=== PATIENT | female | born 1955 | race Caucasian/White ===

== ENCOUNTER 2023-03-08 11:50 | Outpatient (CLI) | payer MEDICARE, SELFPAY ==
--- NOTE | ~2023-03-08 | XR_ITS ---
AP and lateral views of the right hip Clinical history: Pain Findings: No acute fracture or dislocation is seen. Osseous alignment is anatomic. Right hip joint is preserved. Soft tissues are unremarkable. Impression: No significant abnormality is seen. Reviewed, dictated and finalized at location M. Impression: No significant abnormality is seen.
[2023-03-08 19:21] LABS: Alanine Aminotransferase 26 U/L (6-35); Albumin Level 4.3 g/dL (3.5-5.1); Alkaline Phosphatase 112 U/L (38-126); Anion Gap 5 mmol/L (8-16); Aspartate Amino Transferase 45 U/L (14-36); Bilirubin,Total 0.6 mg/dL (0.2-1.3); Blood Urea Nitrogen 24 mg/dL (7-17); Carbon Dioxide 35 mmol/L (22-30); Chloride 99 mmol/L (98-107); Cholesterol 166 mg/dL (0-200); Estimated Glomerular Filt Rate > 60; Glucose 93 mg/dL (65-110); HDL Direct 36 mg/dL; Potassium 4.6 mmol/L (3.4-5.0); Sodium 139 mmol/L (137-145); Triglycerides 144 mg/dL (<150)
[2023-03-08 19:39] LABS: LDL Cholesterol Direct 78 mg/dL
[2023-03-08 19:45] LABS: Creatinine Urine 26.2 mg/dL
[2023-03-08 20:11] LABS: MALB Creatinine Ratio 809.2 mg/g (0-30)
[2023-03-08 20:37] LABS: Hemoglobin A1C 5.9 % (<5.7)
== END 2023-03-08 11:51 | disposition home or self-care (01) ==
PROVIDERS: PCP Nurse Practitioner Adult Health; Visit Provider Nurse Practitioner Adult Health
DX: E11.9 Type 2 diabetes mellitus without complications (principal); Z51.81 Encounter for therapeutic drug level monitoring; R42 Dizziness and giddiness; M25.551 Pain in right hip
CPT/HCPCS: 36415; 73502; 80048; 80061; 80076; 82043; 83036; 84443

== ENCOUNTER 2023-03-29 10:31 | Outpatient (CLI) | payer MEDICARE, SELFPAY ==
[2023-03-29 18:34] LABS: Appearance Urine Turbid (Clear); Bacteria Urine 4+ /hpf; Bilirubin Urine Negative (Negative); Blood Urine Trace (Negative); Color Urine Yellow (Yellow); Glucose Urine UA Negative (Negative); Ketones Urine Negative (Negative); Leukocyte Esterase Ur 3+ LEU/UL (NEGATIVE); Nitrate Urine Negative (Negative); Non Pathogenic Casts 0-2; Protein Urine 2+ mg/dL (Negative); RBC Urine 0-2 /hpf (0-2); Squamous Epithelial Cell Urine Few /hpf (Few); Urobilinogen Urine 0.2 mg/dL (<2.0); WBC Urine >100 /hpf (0-3)
[2023-03-29 18:37] LABS: Add Urine Microscopic? YES
== END 2023-03-29 10:32 | disposition home or self-care (01) ==
PROVIDERS: PCP Nurse Practitioner Adult Health; Visit Provider Nurse Practitioner Adult Health
DX: R39.9 Unspecified symptoms and signs involving the genitourinary system (principal)
CPT/HCPCS: 81001

== ENCOUNTER 2023-05-23 08:39 | Outpatient (CLI) | payer MEDICARE, SELFPAY ==
[2023-05-23 18:43] LABS: Appearance Urine Turbid (Clear); Bacteria Urine 4+ /hpf; Bilirubin Urine Negative (Negative); Blood Urine 2+ (Negative); Color Urine Yellow (Yellow); Glucose Urine UA Negative (Negative); Ketones Urine Negative (Negative); Leukocyte Esterase Ur 3+ LEU/UL (NEGATIVE); Need Manual Microscopic Reviewed; Nitrate Urine Negative (Negative); Protein Urine 3+ mg/dL (Negative); RBC Urine 21-50 /hpf (0-2); Specific Grav Ur 1.017 (1.001-1.035); Squamous Epithelial Cell Urine Moderate /hpf (Few); Urobilinogen Urine 0.2 mg/dL (<2.0); WBC Urine >100 /hpf (0-3)
[2023-05-23 18:45] LABS: Add Urine Microscopic? YES
== END 2023-05-23 08:40 | disposition home or self-care (01) ==
PROVIDERS: PCP Nurse Practitioner Adult Health; Visit Provider Nurse Practitioner Adult Health
DX: R39.9 Unspecified symptoms and signs involving the genitourinary system (principal)
CPT/HCPCS: 81001

== ENCOUNTER → 2023-06-12 10:36 | Outpatient (CLI) | payer MEDICARE, SELFPAY ==
--- NOTE | ~2023-06-12 | MM_ITS ---
EXAMINATION: MM screening jenna BI w long HISTORY: Screening TECHNIQUE: Craniocaudal and mediolateral oblique 3-D tomosynthesis images were obtained and synthetic 2-D images were generated. CAD analysis was submitted and interpreted. COMPARISON: No prior mammogram is available for comparison at this institution. BREAST PARENCHYMAL COMPOSITION: There are scattered areas of fibroglandular density. FINDINGS: There is no evidence of suspicious mass, calcification, or architectural distortion to sugg est malignancy in either breast. There has been no suspicious interval change. IMPRESSION: 1. No mammographic evidence of malignancy. 2. Recommend routine screening mammography in one year. BI-RADS Category 1: Negative Reviewed, dictated and finalized at location A. AL MANAGEMENT REPRESENTATIVE
== END ==
PROVIDERS: PCP Nurse Practitioner Adult Health; Visit Provider Nurse Practitioner Adult Health
DX: Z12.31 Encounter for screening mammogram for malignant neoplasm of breast (principal)
CPT/HCPCS: 77063; 77067

== ENCOUNTER 2023-07-04 09:48 | Outpatient (CLI) | payer MEDICARE, SELFPAY ==
[2023-07-04 20:42] LABS: Alanine Aminotransferase 18 U/L (6-35); Alkaline Phosphatase 125 U/L (38-126); Anion Gap 8 mmol/L (8-16); Aspartate Amino Transferase 27 U/L (14-36); Bilirubin,Total 0.6 mg/dL (0.2-1.3); Blood Urea Nitrogen 28 mg/dL (7-17); Calcium 9.2 mg/dL (8.4-10.2); Carbon Dioxide 31 mmol/L (22-30); Chloride 97 mmol/L (98-107); Cholesterol 183 mg/dL (0-200); Estimated Glomerular Filt Rate > 60; Glucose 209 mg/dL (65-110); HDL Direct 42 mg/dL; Potassium 4.3 mmol/L (3.4-5.0); Sodium 136 mmol/L (137-145); Triglycerides 178 mg/dL (<150)
[2023-07-04 20:58] LABS: LDL Cholesterol Direct 80 mg/dL
[2023-07-05 01:55] LABS: Hemoglobin A1C 8.7 % (<5.7)
== END 2023-07-04 09:49 | disposition home or self-care (01) ==
PROVIDERS: PCP Nurse Practitioner Adult Health; Visit Provider Nurse Practitioner Adult Health
DX: E11.9 Type 2 diabetes mellitus without complications (principal)
CPT/HCPCS: 36415; 80053; 80061; 83036

== ENCOUNTER 2023-08-30 11:03 | Outpatient (CLI) | payer MEDICARE, SELFPAY ==
[2023-08-30 18:32] LABS: Appearance Urine Clear (Clear); Bilirubin Urine Negative (Negative); Blood Urine Negative (Negative); Color Urine Yellow (Yellow); Glucose Urine UA Negative (Negative); Ketones Urine Negative (Negative); Leukocyte Esterase Ur Negative LEU/UL (NEGATIVE); Nitrate Urine Negative (Negative); Protein Urine Negative (Negative); Specific Grav Ur 1.011 (1.001-1.035); Urobilinogen Urine 0.2 mg/dL (<2.0); pH Urine 5.5 (5.0-9.0)
[2023-08-30 18:34] LABS: Add Urine Microscopic? NO
== END 2023-08-30 11:04 | disposition home or self-care (01) ==
PROVIDERS: PCP Nurse Practitioner Adult Health; Visit Provider Nurse Practitioner Adult Health
DX: R39.9 Unspecified symptoms and signs involving the genitourinary system (principal)
CPT/HCPCS: 81003

== ENCOUNTER 2023-09-26 14:32 | Outpatient (CLI) | payer MEDICARE, SELFPAY ==
[2023-09-26 20:04] LABS: Bacteria Urine 4+ /hpf; Need Manual Microscopic Reviewed; RBC Urine 0-2 /hpf (0-2); Squamous Epithelial Cell Urine Moderate /hpf (Few); WBC Urine 21-50 /hpf (0-3)
[2023-09-26 20:10] LABS: Appearance Urine Sl Cloudy (Clear); Color Urine Yellow (Yellow); pH Urine 5.5 (5.0-9.0)
[2023-09-26 20:11] LABS: Bilirubin Urine Negative (Negative); Blood Urine Negative (Negative); Glucose Urine UA Negative (Negative); Ketones Urine Trace mg/dL (Negative); Nitrate Urine Negative (Negative); Protein Urine Trace mg/dL (Negative); Specific Grav Ur 1.015 (1.001-1.035); Urobilinogen Urine 0.2 mg/dL (<2.0)
[2023-09-26 20:12] LABS: Add Urine Microscopic? YES; Leukocyte Esterase Ur 1+ LEU/UL (Negative)
== END 2023-09-26 14:33 | disposition home or self-care (01) ==
LOC: ANHBWCLAB 14:33
PROVIDERS: PCP Nurse Practitioner Adult Health; Visit Provider Nurse Practitioner Adult Health
DX: R39.9 Unspecified symptoms and signs involving the genitourinary system (principal)
CPT/HCPCS: 81001

== ENCOUNTER 2023-11-27 15:44 | Outpatient (CLI) | payer MEDICARE, SELFPAY ==
[2023-11-27 20:01] LABS: Appearance Urine Cloudy (Clear); Bacteria Urine 4+ /hpf; Bilirubin Urine Negative (Negative); Blood Urine Negative (Negative); Color Urine Yellow (Yellow); Glucose Urine UA Negative (Negative); Ketones Urine Negative (Negative); Leukocyte Esterase Ur 2+ LEU/UL (Negative); Nitrate Urine Negative (Negative); Protein Urine Negative (Negative); RBC Urine 0-2 /hpf (0-2); Squamous Epithelial Cell Urine Occasional /hpf (Few); Urobilinogen Urine 0.2 mg/dL (<2.0); WBC Urine >100 /hpf (0-3); pH Urine 5.5 (5.0-9.0)
[2023-11-27 20:05] LABS: Add Urine Microscopic? YES
== END 2023-11-27 15:45 | disposition home or self-care (01) ==
PROVIDERS: PCP Nurse Practitioner Adult Health; Visit Provider Nurse Practitioner Adult Health
DX: R39.9 Unspecified symptoms and signs involving the genitourinary system (principal)
CPT/HCPCS: 81001; 87077; 87086; 87088; 87186

== ENCOUNTER 2024-02-12 09:31 | Outpatient (RCR) | payer MEDICARE, OTHER, SELFPAY ==
[2024-02-12 09:35] VITALS: BMI 33.0
[2024-02-12 10:22] VITALS: BMI 33.0
== END 2024-04-30 14:16 | disposition home or self-care (01) ==
LOC: ANHDMC 09:31
PROVIDERS: PCP Nurse Practitioner Adult Health; Visit Provider Internal Medicine
DX: E11.9 Type 2 diabetes mellitus without complications (principal); Z71.3 Dietary counseling and surveillance
CPT/HCPCS: 97802

== ENCOUNTER 2024-03-15 16:38 | Emergency (ER) | payer MEDICARE, SELFPAY ==
--- NOTE | 2024-03-15 16:46 | ED.GENADULT ---
HPI - General Adult General Chief complaint: Neck Pain/Injury Stated complaint: Neck/ shoulder Pain Time Seen by Provider: 03/15/24 16:46 Source: patient, RN notes reviewed and old records reviewed Mode of arrival: ambulatory Limitations: no limitations History of Present Illness HPI narrative: 68-year-old female to Express with complaint left-sided and posterior neck pain for 3 days. Patient states she believes it is from sleeping on it wrong. Patient has attempted to treat at home with ibuprofen without relief. Patient denies numbness, tingling, chest pain, weakness, prior injury. patient resting in exam room in no acute distress. Respirations even and nonlabored. Related Data Home Medications Medication Instructions Recorded Confirmed furosemide 40 mg tablet 40 mg PO QAM 03/08/23 02/01/24 meloxicam 15 mg tablet 15 mg PO DAILY 03/08/23 02/01/24 solifenacin 10 mg tablet 10 mg PO DAILY 03/08/23 02/01/24 Glargine Solostar RF .Route 05/23/23 02/01/24 insulin glargine 100 unit/mL (3 20 unit subcut DAILY 02/01/24 02/01/24 mL) subcutaneous pen (Lantus Solostar U-100 Insulin) glucagon 3 mg/actuation nasal mg intranasal 03/15/24 spray (Baqsimi) ketorolac 0.5 % eye drops drp 03/15/24 polymyxin B sulfate 10,000 03/15/24 unit-trimethoprim 1 mg/mL eye drops Allergies Allergy/AdvReac Type Severity Reaction Status Date / Time No Known Allergies Allergy Verified 03/15/24 16:40 Review of Systems Review of Systems: All systems reviewed & are unremarkable except as noted in HPI and below Constitutional: Constitutional: Reports no additional constitutional complaints Eyes: Eyes: Reports no additional eye complaints ENT: Reports system reviewed and no additional complaints, except as documented Cardiovascular: Cardiovascular: Reports no additional cardiovascular complaints, Denies chest pain and Denies dyspnea Respiratory: Respiratory: Reports no additional respiratory complaints, Denies cough and Denies dyspnea Musculoskeletal: Musculoskeletal: Reports as per HPI and Reports neck pain Neurologic: Reports system reviewed and no additional complaints, except as documented Psychiatric: Psychiatric: Reports no additional psychiatric complaints PMFSH Past Medical History Medical History Diabetes HTN (hypertension) Surgical History Surgical History H/O knee surgery History of eye surgery Family History Family History Father Lung cancer Mother Breast cancer Social History Social History Smoking status: Never smoker Alcohol intake: never Substance use: never Lack of Transportation: No Lack of Food: Never True Current Housing: I Have Housing Concerned About Future Housing: No Difficulty Paying Gas/Electric Bills: No Currently Unemployed: YES Education: High School Diploma/GED Living arrangements: with family Occupation/Education: retired Gender identity (if verbalized by the patient): Female Spiritual care concerns: No Agree to blood products: Yes Comments At the time of my signature, I reviewed and agree with the nursing past medical, surgical, social, and family history. There is no relevant family history pertinent to the patient complaint. Exam Const: General: cooperative, no acute distress, alert, ill appearing chronically and well nourished Nutritional Appearance: well nourished Orientation/consciousness: patient oriented x3 Limitations: no limitations HENMT: Head: normal to inspection Ears: external ears normal Face/Nose/Sinus: Normal external nose present, Normal nares present, normal facial exam, No erythema and No edema Face and sinus: normal facial exam, no erythema and no edema Mouth: Yes Normal oral and pa
[2024-03-15 16:48] VITALS: BP 155/60; PULSE 101; RESP 16; TEMP 36.9; O2SAT 100
== END 2024-03-15 17:46 | disposition home or self-care (01) ==
PROVIDERS: Emergency Provider Nurse Practitioner Family; PCP Nurse Practitioner Adult Health
DX: S16.1XXA Strain of muscle, fascia and tendon at neck level, initial encounter (principal); X58.XXXA Exposure to other specified factors, initial encounter; E11.9 Type 2 diabetes mellitus without complications; I10 Essential (primary) hypertension
CPT/HCPCS: 99213; G0463

== ENCOUNTER 2024-05-12 15:34 | Outpatient (CLI) | payer MEDICARE, SELFPAY ==
--- NOTE | ~2024-05-12 | XR_ITS ---
EXAMINATION: XR hand LT 2V, XR wrist LT 2V DATE: 05/12/2024 15:49 INDICATION: Left hand pain TECHNIQUE: 1. Posteroanterior and lateral views of the left wrist were obtained. 2. Dorsal palmar and lateral views of the left hand were obtained. COMPARISON: None. FINDINGS: Alignment of the left hand and wrist is normal. No fracture identified. Polyarticular osteoarthritis at the left hand and wrist, moderate severity at the triscaphe, first carpometacarpal, midcarpal, th ird metacarpophalangeal and multiple predominantly distal interphalangeal joints and mild at the wris t and many of the remaining metacarpophalangeal and interphalangeal joints. No erosions to suggest in flammatory arthritis. No focal soft tissue swelling. IMPRESSION: 1. 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 Reviewed, dictated and finalized at location B. BILITATION AIDE/SCHEDULER IMPRESSION: 1. 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
[2024-05-12 19:36] LABS: Add Urine Microscopic? YES; Appearance Urine Cloudy (Clear); Bacteria Urine 4+ /hpf; Bilirubin Urine Negative (Negative); Blood Urine Negative (Negative); Color Urine Yellow (Yellow); Glucose Urine UA 3+ mg/dL (Negative); Ketones Urine Negative (Negative); Leukocyte Esterase Ur 2+ LEU/UL (Negative); Need Manual Microscopic Reviewed; Nitrate Urine Negative (Negative); Protein Urine Trace mg/dL (Negative); RBC Urine 0-2 /hpf (0-2); Squamous Epithelial Cell Urine Few /hpf (Few); Urobilinogen Urine 0.2 mg/dL (<2.0); WBC Urine >100 /hpf (0-3)
== END 2024-05-12 15:35 | disposition home or self-care (01) ==
LOC: ANHBWCLAB 15:35
PROVIDERS: PCP Nurse Practitioner Adult Health; Visit Provider Nurse Practitioner Adult Health
DX: M19.042 Primary osteoarthritis, left hand (principal); M19.032 Primary osteoarthritis, left wrist; R42 Dizziness and giddiness; R39.9 Unspecified symptoms and signs involving the genitourinary system
CPT/HCPCS: 73100; 73120; 81001; 87077; 87086; 87147; 87186

== ENCOUNTER 2024-07-01 15:42 | Outpatient (CLI) | payer MEDICARE, SELFPAY ==
[2024-07-01 18:42] LABS: Alanine Aminotransferase 18 U/L (6-35); Albumin Level 4.1 g/dL (3.5-5.1); Alkaline Phosphatase 136 U/L (38-126); Anion Gap 4 mmol/L (4-12); Aspartate Amino Transferase 29 U/L (14-36); Bilirubin,Total 0.6 mg/dL (0.2-1.3); Blood Urea Nitrogen 27 mg/dL (7-17); Calcium 9.4 mg/dL (8.4-10.2); Carbon Dioxide 30 mmol/L (22-30); Chloride 99 mmol/L (98-107); Estimated Glomerular Filt Rate 45; Glucose 127 mg/dL (65-110); Sodium 133 mmol/L (137-145)
[2024-07-01 18:53] LABS: Creatinine Urine 106.7 mg/dL
[2024-07-01 18:58] LABS: MALB Creatinine Ratio 92.6 mg/g (0-30); Microalbumin Urine Random 98.8 mg/L (0-16.7)
[2024-07-03 13:59] LABS: Thyroid Peroxidase Antibodies <1 IU/mL (<9)
== END 2024-07-01 15:43 | disposition home or self-care (01) ==
LOC: ANHBWCLAB 15:43
PROVIDERS: PCP Nurse Practitioner Adult Health; Visit Provider Internal Medicine
DX: R80.9 Proteinuria, unspecified (principal); E11.9 Type 2 diabetes mellitus without complications; I10 Essential (primary) hypertension
CPT/HCPCS: 36415; 80053; 82043; 84439; 84443; 86376

== ENCOUNTER 2024-07-28 11:06 | Outpatient (CLI) | payer MEDICARE, SELFPAY ==
--- OUTSIDE RECORDS SUMMARY | 2024-07-28 12:12 | XMS_ITS | Encounter Summary ---
Author Organization [facility] Address [address] [place] [address] Phone Care Team Providers Care Chopper Gun Operator Name Role Phone Stefan Deal MD Unavailable Stephanie Padilla MD Primary Care Provider [phone] Mariaa العراقي APRN Primary Care Provider [phone] Nicolas Overton MD Unavailable Viraj Salgado MD Unavailable [phone] Reason for Visit * Reason Comments Medication Refill Encounter Details Date Type Department Care Team (Late st Contact Info) Description 01/14/2023 Refill [facility] - [facility] [address] [place] [address] Jeyson Velazquez MD [address] [place] [address] Medication Refill Social History Tobacco Use Types Packs/Day Years Used Date Smoking Tobacco: Former Cigarettes 1 46.8 1 972 - 2018 Smokeless Tobacco: Never Alcohol Use Standard Drinks/Week Comments Never 0 (1 standard drink = 0.6 oz pur e alcohol) Education Answer Date Recorded What is the highest level of school you have completed or the highest degree you have received? Associate degree: occupational, technical, or vocational program 03/22/2022 Sexually Active Control Partners Comments Not Currently None Male Comments No Sex and Gender Information Value Date Recorded Sex Assigned at Not on file Legal Sex Female 2:20 PM CDT Gender Identity Not on file Sexual Orientation Not on file COVID-19 Exposure Response Date Recorded In the last 10 days, have yo u been in contact with someone who was confirmed or suspected to have Coronavirus/COVID-19? No / Unsure 01/15/2023 9:56 AM CDT documented as of this encounter Plan of Treatment Not on file documented as of this encounter Visit Diagnoses Not on filedocumented in this encounter Care Teams Chopper Gun Operator Relationship Specialty Start Date End Date Stephanie Padlila MD [address] [place] [place] [address] [phone] PCP - General Family Medicine 07/10/22 04/05/23 Mariaa العراقي, SALESPERSON FLYING SQUAD [address] [place] [place] [address] [phone] PCP - General Advanced Practice Nurse 04/06/23 Stefan Deal MD [facility] [address] [phone] Consulting Physician Endocrinology 06/20/22 Nicolas Overton MD [address] [place] [phone] Consulting Physician Pulmonary Disease 01/15/23 Viraj Salgado MD [address] [place] [address] Consulting Physician Neurology 01/05/23 documented as of this encounter
--- OUTSIDE RECORDS SUMMARY | 2024-07-28 12:12 | XMS_ITS | Encounter Summary ---
Author Organization [facility] Address [address] [place] [place] [address] Phone Care Team Providers Care Healthcare Administration Internship Name Role Phone Stefan Deal MD Unavailable Mariaa العراقي APRN Primary Care Provider Nicolas Overton MD Unavailable Viraj Salgado MD Unavailable Reason for Visit * Reason Comments Medication Refill Encounter Details Date Type Department Care Team (Late st Contact Info) Description 05/04/2023 Refill [facility] - [facility] [address] [place] [address] Stefan Deal MD [address] [address] Medication Refill Social History Tobacco Use Types [...] suspected to have Coronavirus/COVID-19? No / Unsure 04/06/2023 10:59 AM CDT documented as of this encounter Miscellaneous Notes * Telephone Encounter - Leanna Carrasco, RN - 05/07/2023 8:23 AM [employer] CONSULTANT Requested Prescriptions Pending Prescriptions Disp Refills ??? Insulin Pen Needle (Easy Touch Pen [place]) 31G X 8 MM Misc [Pharmacy Med Name: Easy Touch 31 gauge x 5/16 needle] 100 Pen Needle 11 Sig: USE DAILY DIRECTED (BULK) Next appt: Message sent to schedule follow up. [employer] documented in this encounter Plan of Treatment Not on file documented as of this encounter Visit Diagnoses Not on filedocumented in this encounter Care Teams Healthcare Administration Internship Relationship Specialty Start Date End Date Mariaa العراقي APRN #[address] [address] PCP - General Advanced Practice Nurse 04/06/23 Stefan Deal MD #[address] [address] Consulting Physician Endocrinology 06/20/22 Nicolas Overton MD [address]2 [place] [address] Consulting Physician Pulmonary Disease 01/15/23 Viraj Salgado MD [address] [place] [address] Consulting Physician Neurology 01/05/23 documented as of this encounter
--- OUTSIDE RECORDS SUMMARY | 2024-07-28 12:13 | XMS_ITS | Patient Health Record ---
Author Organization [facility] Address [address] [address] [place] [address] Care Team Providers Care Program Professional Name Role Phone Stephanie Padilla Primary Care Provider Michael reyna Tricia Sanchez Unavailable [phone] Allergies No Known Allergies Reason For Referral No Information Medications Medication SIG (Take, Route, Fr equency, Duration) Notes Start Date End Date Status Losartan Potassium A ctive Lantus Active Atorvastatin Calcium Active traZODone HCl Active Solifenacin Succinate Active Pioglitazone HCl 45 MG Oral for 30 Days Active Venlafaxine HCl Acti ve Furosemide 40 MG Oral for 30 Days Active Omeprazole Active Lyrica Active Glimepiride Active Meloxicam Active Vitamin C Active Social History Tobacco Use: Social History Observation Description Date Details (start date - stop date) Former Smoker NA - NA Tobacco Use/Smoking Question Answer Notes Are you a former smoker Problems Problem Type SNOMED Code ICD Code Onset Dates Problem Status W/U Status Risk Notes Problem 103157896 group home (curre nt) use of insulin (Z79.4) Active confirmed Problem 62296373 Type 2 diabetes mellitus with diabetic polyneuropathy (E11.42) Active confirmed Problem 717467836 Unstable balance (R26.89) Active confirmed Plan Of Treatment No Information Insurance Providers Payer Name Payer Address Payer Phone Subscriber Number Group Number Insured Name Patient Relationship to Insured Coverage Start Date Coverage End Date [employer] Medicare Complete [address] [address] [place] [address] [id number] Tiara Rosas Self - patient is the insured Medical (General) History Medical History History ICD Code Arthritis, Diabetes, high cholesterol, h ypertension Surgical History Surgery Date(Month/Year) Left partial second toe ampu tation, Eye surgery for hole in retina(LT eye, 12/2022)
--- OUTSIDE RECORDS SUMMARY | 2024-07-28 12:13 | XMS_ITS ---
Author Organization 1 [facility] Address [address] [place] [address] Care Team Providers Care Learning Support Resource Room Teacher Name Role Phone Stephanie Padilla Primary Care Provider Unavailab Tricia Fulton Unavailable [phone] Allergies No Known Allergies REASON FOR VISIT DFC (Diabetic foot care) Medications Medication SIG (Take, Route, Fr equency, Duration) Notes Start Date End Date Status Losartan Potassium A ctive Lantus Active Atorvastatin Calcium Active traZODone HCl Active Meloxicam Active Solifenacin Succinate Active Omeprazole Active Lyrica Active Glimepiride Active Vitamin C Active Pioglitazone HCl 45 MG Oral for 30 Days Active Venlafaxine HCl Acti ve Furosemide 40 MG Oral for 30 Days Active Vital Signs Height 65 in 02/07/2023 Weight 220 lbs 02/07/2023 BMI 36.61 kg/m2 02/07/2023 Encounters Encounter Location Date Provider Diagnosis 1 OF [facility] [address] [place] [address] 02/07/2023 Tricia Sanchez Onychogryphosis L60. 2 ; Type 2 diabetes mellitus with diabetic polyneuropathy E11.42 and Callus of foot L84 Assessments Encounter Date Diagnosis (ICD Code) Assessment Notes Treatment Notes Treatment Clinical Notes Section Notes 02/07/2023 Onychogryphosis (ICD-10 - L60.2) Considering the associated comorbidities and physical exam findings today, this patient is at substantial risk of developing serious foot complications in the absence of regular and professional palliative foot care. 02/07/2023 Type 2 diabetes mellitus with diabetic polyneuropathy (ICD-10 - E11.42) 02/07/2023 Callus of foot (ICD-10 - L84) Plan Of Treatment Treatment Notes Assessment Notes Onychogryphosis Considering the asso ciated comorbidities and physical exam findings today, this patient is at substantial risk of developing serious foot complications in the absence of regular and professional palliative foot care. Next Appt Details Follow Up: 3 Months, prn, Re ason: Procedure Notes * Category Sub-Category Detail Notes PALLIATIVE FOOT CARE: Callus paring: (27288) Le ss than five calluses as noted above reduced with a sterile scalpel blade Nail debride (91088): Debridement of at least six mycotic and/or hypertrophic nails performed:, utilizing manual and electric debridement the affected nails were reduced the nails in length and thickness with curettage of debris from nail margins performed as needed. Nail thickness reduced by:, 10% Progress Notes * Tiara LOPEZDOB:1955 ( 67 yo F)Acc No.[id number]:02/07/2023 Progress Note Patient:?Tiara Lopez Provider:?Tricia Sanchez DPM :1955???Age:67 Y???Sex:Female D ate:02/07/2023 Address:[address] [facility] Pcp:UNKNOWN UNKNOWN Subjective: * Chief Complaints: * ???DFC (Diabetic foot care) * HPI: ???MA assisting with visit::?HPI/Rooming:?Eliza.?Primary reason for visit::?Diabetic Foot Care: ?67 y/o diabetic female RTO for diabetic foot care.?Patient reports no acute issues with nails or calluses today. ?Pt does report she had eye suergery recently and she is partially blind currently.?Reports last HA1c of 6.0.? * ROS:?* MULTI-SYSTEM REVIEW::?Nausea, fever or chillls?denies.?burning, tingling,numbness in feet? admits.?Any change in medications since last visit?? admits.?Any changes in medical history/hospitalizations?? admits.? * Medical History:? * Surgical History:?Left parti al second toe amputation, Eye surgery for hole in retina(LT eye, 12/2022) * Hospitalization/Major Diagno stic Procedure:? * Family History:?No Family Hi story documented..? * Medications:?TakingVenlafaxi ne HCl Solifenacin Succinate Lyrica Omeprazole Glimepiride Vitamin C Meloxicam Lantus Losartan Potassium traZODone HCl Atorvastatin Calcium Furosemide 40 MG Tablet Oral Pioglitazone HCl 45 MG Tablet Oral Medication List reviewed and reconciled with the patientTaking Venlafaxine HCl Taking Solifenacin Succinate Taking Lyrica Taking Omeprazole Taking Glimepiride Taking Vitamin C Taking Meloxicam Taking Lantus Taking Losartan Potassium Taking traZODone HCl Taking Atorvastatin Calcium Taking Furosemide 40 MG Tablet Oral Taking Pioglitazone HCl 45 MG Tablet Oral Medication List reviewed and reconciled with the patient * Allergies:?N.K.D.A.no[Allerg ies Verified] Objective: * Vitals:?Wt:220 lbs, Wt-k 9.79 kg, Ht: 65 in, BMI:36.61 Index. * Examination: ???General Examination: ?Constitutional / Appearance: ?No acute distress , Well nourished, Appropriate personal hygiene.?Mental status: ?Cooperative, Oriented to person, place and time, Mood and affect: normal, Judgement and intellect: normal with appropriate response to questions.?Shoes today:?Diabetic shoes with inserts.?Lower Extremity VASCULAR: : ?Pulses:?DP pulse diminished bilateral; PT pulse diminished bilateral.?Temperature gradient: ? Slightly decreased from proximal to distal, bilateral.?Pedal hair: ?sparse, bilateral.?Venous insufficiency edema:?mild, pitting, lower legs.?Capillary refill at distal toes? less than 5 seconds, bilateral.?Lower Extremity DERM: : ?Skin: ?relatively dry, no suspicious lesions, no open sores, bilateral .?Nails:?Nail plates of:TA, T2-T9 except G5kvmwau elongated, relatively thickened, dystrophic, discolored with subungual debris..?Hyperkeratotic lesions LEFT foot: ?medial hallux IPJ.?Hyperkeratotic lesions RIGHT foot: ?distal 2nd toe , plantar medial 1st MPJ.?Lower Extremity NEURO: : ?General sensation appears?diminished, bilateral.?Muscle tone?diminished, bilateral .?Monofilament test (10 gram pressure)?Exam of 07/12/2022: revealed absent sensation to at least two distinct locations of entire foot, bilateral.?Vibration perception: ?Exam of 07/12/2022: noted significantly diminished / absent per evaluation with 128Hz tuning fork applied to distal hallux compared to ipsilateral medial malleolus @ bilateral feet .?Lower Extremity MSK: : ?Gait?Slow gait.?Foot type:?Bilateral lower extremity exhibits relatively rectus foot.?Muscle strength: ? diminished , all 4 quadrants tested, bilateral.?Left lower extremity inspection and palpation: ? No palpable masses or nodules noted..?Right lower extremity inspection and palpation: ?No palpable masses or nodules noted..?Amputation noted:?Left partial second toe amputation..?Foot deformities:? LT foot: hammertoes 3-5, , RT foot: hammertoes, 2-5. ?.? Assessment: * Assessment: 1.?Onychogryphosis - L60.2?2 .?Type 2 diabetes mellitus with diabetic polyneuropathy - E11.42 (Primary)?3.?Callus of foot - L84? Plan: * Treatment: * Procedures:?PALLIATIVE FOOT CARE::?Callus paring: ?(42507) Less than five calluses as noted above reduced with a sterile scalpel blade.?Nail debride (29103): ?Debridement of at least six mycotic and/or hypertrophic nails performed:, utilizing manual and electric debridement the affected nails were reduced the nails in length and thickness with curettage of debris from nail margins performed as needed. Nail thickness reduced by:, 10%.? * Procedure Codes:?74833 TRIM SKIN LESIONS, 2 TO 4, Modifiers: Q7 57631 DEBRIDE NAIL, 6 OR MORE, Modifiers: Q7 , 59 * Preventive Medicine:? ??Counseling:?Care goal follow-up plan:?Above Normal BMI Follow-up?Lifestyle education regarding diet ??Screenings:?FALL RISK SCREENING?Fall Risk Assessment:?Two or more falls without injury in the past year * Follow Up:?3 Months, prn * Images: * Sign off status: Completed true * Provider:?Tricia Sanchez DPM Date:?2022 Generated for Odell sanchez/Fede/Augusto on:?07/28/2024 12:13 PM MAMMA LOGIST History and Physical Notes * HPI (History of Present Illness) Category Sub-Category Detail Notes Category Not es Primary reason for visit: Diabetic Foot Care: 67 y/o diabetic female RTO for diabetic foot care. Patient reports no acute issues with nails or calluses today. Pt does report she had eye suergery recently and she is partially blind currently. Reports last HA1c of 6.0 MA assisting with visit: HPI/Rooming: Eliza Examination Category Sub-Category Detail Notes Category Not es General Examination Mental status: Cooperative, Oriented to person, place and time, Mood and affect: normal, Judgement and intellect: normal with appropriate response to questions Shoes today: Diabetic shoes with inserts Constitutional / Appearance: No acute di stress , Well nourished, Appropriate personal hygiene Lower Extremity VASCULAR: Venous insufficiency e tra: mild, pitting, lower legs Pulses: DP pulse diminished bilateral; PT pulse diminished bilateral Temperature gradient: Slightly decreased from proximal to distal, bilateral Pedal hair: sparse, bilateral Capillary refill at distal toes less jordana n 5 seconds, bilateral Lower Extremity NEURO: Monofilament test (10 gram pressure) Exam of 07/12/2022: revealed absent sensation to at least two distinct locations of entire foot, bilateral Vibration perception: Exam of 07/12/2022: noted significantly diminished / absent per evaluation with 128Hz tuning fork applied to distal hallux compared to ipsilateral medial malleolus @ bilateral feet General sensation appears diminished, bi lateral Muscle tone diminished, bilatera l Lower Extremity MSK: Muscle strength: diminished , all 4 quadrants tested, bilateral Foot type: Bilateral lower extr emity exhibits relatively rectus foot Amputation noted: Left partial second toe amputation. Foot deformities: LT foot: hammertoes 3-5, , RT foot: hammertoes, 2-5. Left lower extremity inspect ion and palpation: No palpable masses or nodules noted. Right lower extremity inspec tion and palpation: No palpable masses or nodules noted. Gait Slow gait Lower Extremity DERM: Skin: relatively dry, no suspicious lesions, no open sores, bilateral Nails: Nail plates of: TA, T2-T9 except T7 appear elongated, relatively thickened, dystrophic, discolored with subungual debris. Hyperkeratotic lesions LEFT foot: medial hallux IPJ Hyperkeratotic lesions RIGHT foot: dista l 2nd toe , plantar medial 1st MPJ
--- OUTSIDE RECORDS SUMMARY | 2024-07-28 12:13 | XMS_ITS | Encounter Summary ---
Author Organization [facility] Address [address] [place] [address] Phone Care Team Providers Care Marketing Strategist Name Role Phone Stefan Deal MD Unavailable Mariaa العراقي APRN Primary Care Provider Nicolas Overton MD Unavailable Viraj Salgado MD Unavailable [phone] Reason for Visit * Reason Comments Medication Refill Encounter Details Date Type Department Care Team (Late st Contact Info) Description 01/07/2024 Refill [facility] [address] [place] [address] Stefan Deal MD [address] [address] Medication Refill Social History Tobacco [...] on file Sexual Orientation Not on file documented as of this encounter Plan of Treatment Not on file documented as of this encounter Visit Diagnoses Not on filedocumented in this encounter Care Teams Marketing Strategist Relationship Specialty Start Date End Date Mariaa العراقي APRN [address] [address] PCP - General Advanced Practice Nurse 04/06/23 Stefan Deal MD [address] [phone] Consulting Physician Endocrinology 06/20/22 Nicolas Overton MD #2 [place] [address] Consulting Physician Pulmonary Disease 01/15/23 Viraj Salgado MD [address]2 [place] [phone] Consulting Physician Neurology 01/05/23 documented as of this encounter
--- OUTSIDE RECORDS SUMMARY | 2024-07-28 12:13 | XMS_ITS | Continuity of Care Document ---
Author Organization [facility] Address [address] [facility] utijenni Uriarte [address] [place] [id number] Phone Care Team Providers Care Acute Care Certified Nursing Assistant Name Role Phone Inocencia Castro OD Unavailable Unavailable Allergies, Adverse Reactions, Alerts Substance Reaction Status Criticality No Known Allergies Active No Inform ation Medications Medication Instructions Dosage Effective Dates (start - stop) Status Comments Farxiga 5 mg tablet take 1 tablet by oral route every day in the morning 5 MG - Active Mounjaro 5 mg/0.5 mL subcutaneous pen injector inject (5MG) by subcutaneous route every week 5 MG - Active losartan 100 mg-hydrochlorothiazi de 25 mg tablet take 1 tablet by oral route every day 1.00 tablet - Active trazodone 50 mg tablet take 1 tablet by oral route every day at bedtime 50 MG - Active omeprazole 40 mg capsule,delayed release take 1 capsule by oral route every day before a meal 40 MG - Active meloxicam 7.5 mg tablet take 1 tablet by oral route 2 times every day 7.5 MG - Active venlafaxine 75 mg tablet take 1 tablet by oral route 2 times every day with food 75 MG - Active Procedures Procedure Date No Charge Optomap Fundus Photos 025 No Charge Orbscan Office/outpatient Visit, Est No Charge Refraction Post-op Follow-up Visit Remove Cataract, Insert Lens IOLMaster-Professional No Charge Refraction Fundus Photography W/ Report No Charge GDX Retina Office/outpatient Visit, Est IOLMaster-Technical No Charge Orbscan Eye Exam & Treatment No Charge Optomap Fundus Photos 024 SCODI, Retina No Charge Optomap Fundus Photos 023 No Charge Refraction Eye Exam & Treatment No Charge Visual Field Examination No Charge GDX Posterior Segment 022 No Charge GDX Retina No Charge Pachymetry Fundus Photography W/ Report Eye Exam, New Patient Advance Directives Directive Yes / No Effective Date File Name No Information Encounters Encounter Description Practice Location Reason(s) For Visit Diagnoses Date Provider Providers Copied on Encounter [facility], [address], [place], [place], [address], [place] tel:[phone] [place] No Information 5 Matthew OD Inocencia. [address], [place], [place], [address], [place]. tel:[phone] Office/outpa tient Visit, Est [facility], [address], [place], [place], [address], [place] tel:[phone] SEC [place] Professional Corneal evaluation (chief complaint) Dry eye syndrome, leftPresence of intraocular lensCornea disorder 5 Deena Mccullough. [address], [address], [place], [place], [address], [place]. tel:[phone] Naif Bhatti.Refe rring Provider: Deborah Biggs OD, [facility] [address] [facility], [place], [address]. tel:[phone] [facility], [address], [place], [place], [address], [place] tel:[phone] SEC [place] Professional Post-Op (chief complaint) Post op visitAmblyop ia, right eye Nov-2 4 Anahi OD Doris. [address], [address], [place], [place], [address], [place]. tel:[phone] Specialist: Naif Bhatti, [address] [facility] [address], [place], [address]. tel:[phone] Provider: Deborah Biggs OD, [facility] [address] [facility], [place], [address]. tel:[phone] [facility], [address], [place], [place], [address], [place] tel:[phone] [facility] [place] Professional Post-Op (chief complaint) Post op visit Apr-3 4 Anahi OD Doris. [address], [address], [place], [place], [address], [place]. tel:[phone] Naif Bhatti.Refe rring Provider: Deborah Biggs OD, [facility] [address] [facility], [place], [address]. tel:[phone] [facility], [address], [place], [place], [address], [place] tel:[phone] [facility] No Information Apr- 4 Deena Mccullough. [address], [address], [place], [place], [address], [place]. tel:[phone] Referring Provider: Deborah Biggs OD, [facility] [address] [facility], [place], [address]. tel:[phone] [facility], [address], [place], [place], [address], [place] tel:[phone] SEC [place] No Information 4 Deena Jamel. [facility] [address], [address], [place], [place], [address], [place]. tel:[phone] Referring Provider: Deborah Biggs OD, [facility] [address] [place], [address]. tel:[phone] Office/outpa tient Visit, Est [facility], [address] [place] [address] [address], [place], [place], [address], [place] tel:[phone] [place] Professional Cataract evaluation (chief complaint) Amblyopia, right eyeCombined forms of age-related cataract, right eyePresence of intraocular lensType 2 diab with moderate nonp rtnop with macular edema, biStable central retinal vein occlusion of left eye 4 Deena Jamel. [facility] [address], [address], [place], [place], [address], [place]. tel:[phone] Naif Bhatti.Refe rring Provider: Deborah Biggs OD, [facility] [address] [facility], [place], [address]. tel:[phone] [facility], [facility] [employer] [facility] [address], [place], [place], [address], [place] tel:[phone] [place] Professional diabetic eye exam (chief complaint) Stable central retinal vein occlusion of left eyeType 2 diab with moderate nonp rtnop with macular edema, biAmblyopia, right eyeCombined forms of age-related cataract, right eyePresence of intraocular lensFull thickness macular hole of left eyeDry eye syndrome of bilateral lacrimal glands 4 Anahi OD Doris. [facility] [address], [address], [place], [place], [address], [place]. tel:[phone] Specialist: [address], [place], [address]. tel:[phone] ist: Ros [address], [place], [address]. tel:[phone] ng Provider: Deborah Biggs OD, [address], [address]. tel:[phone] [facility], [address], [place], [place], [address], tel:[phone] [place] Professional Follow up visit (chief complaint) Central retinal vein occlusion of left eye, unspecified complication statusFull thickness macular hole of left eye Sep- 3 Baldemar Sanchez. [address], [address], [place], [place], [address], [place]. tel:[phone] Referring Provider: Deborah Biggs OD, [address], [address]. tel:[phone] [facility], [address], [place], [place], [address], [place] tel:[phone] [place] Professional Glaucoma evaluation (chief complaint) Presence of intraocular lensCombined forms of age-related cataract, right eyeMeibomian gland dysfunction (MGD) of left eyeDry eye syndrome, leftOther secondary cataract, left eyeAmblyopia , right eyeHemispher ic central retinal vein occlusion (CRVO) of left eyeType 2 diabetes mellitus without complication s 2 Baldemar Sanchez. [address], [place], [place], [address], [place]. tel:[phone] Referring Provider: Deborah Biggs OD, [facility] [address], [address]. tel:[phone] Family History Family Member Type Diagnosis Age At Onset Problem Family history of Diabetes stevenson newman Payers Payer name Insurance type Covered democrat ID Jannet kimbroughsaravanan(s) [facility] Mdcr Adv CI [id number] Social History Type Description Quantity Date Captured Comments Alcohol Use Details Unknown Caffeine Use Details Unknown Tobacco Use Status No Information Smoking Status No Information Sex Female Chief Complaint And Reason For Visit No Information Reason For Referral Reason For Referral No Information Plan Of Treatment Date Type Action Status Goal Tobacco cessation counseling completed Goal Tobacco cessation counseling completed Goal Tobacco cessation counseling completed Goal Tobacco cessation counseling completed Goal Tobacco cessation counseling completed Referral Ordered: Aneesh Araiza (related to Central retinal vein occlusion of left eye, unspecified complication status) ordered Referral Referred To: Aneesh Araiza [address] [place], [address] Ordered: Referrals: Aneesh Araiza. Evaluate and treat ordered Appointment Tiara Rosas BOOKED Patient Education Cataract Surgery: What to Expect at Home completed Patient Education Learning About Retinal Vein Occlusion completed Patient Education Cataracts: Care Instruc tions completed History Of Present Illness Encounter Date Complaint History Of Prese nt Illness Corneal evaluation The 69 year o ld patient presents for evaluation of Corneal evaluation in the right eye and left eye. Dr. Biggs referred pt for central defect OS. Pt states she feels her vision is still blurry centrally in OS. Pt. states she feels her vision has been blurry since her retina surgery. Post-Op The 69 year old patient presents for a 2 week post op CE OD. Patient is using drops as directed. Patient states OD is doing good. Patient states OS is a mess. Post-Op The 69 year old patient presents for a 1 day post op CE OD. Patient to begin drops as directed. Patient denies any pain or discomfort. Cataract evaluation The 68 year old patient presents for evaluation of Cataract evaluation in the right eye. Pt referred by [facility] for cataract in OD. Pt aware due to h/o Amblyopia she will not get much or any vision improvement. Retina would like to have pt do surgery so they can view retina. Pt also has h/o CRVO OS stable and a Full thickness Mac hole OS. Pt is NIDDM II followed by Dr. Bhatti. Pt's last HA1C was 5.1. Pt states her vision is blurry in both eyes. Pt unable to read small print, see tv. Pt unable to drive due to poor vision. diabetic eye exam The 68 year ol d patient presents for a complete Type II diabetic exam ou. BS was 120 after breakfast and last A1C was 5.[address] Bhatti treats her DM. Patient c/o blurry vision ou. Patient states somedays her vision seems as clear as can be. Patient sees the [facility] and he has her on 3 different drops. Patient thinks one maybe Pred and Ketorolac os. Follow up visit The 67 year old patient presents for evaluation of Follow up visit in the right eye and left eye. Patient is Amblyopic OD and hx of CRVO OS. Patient is pseudo OS. Patient states for the last 3 weeks she c/o decreased vision OS. Patient states she has spots in her vision ou. Patient states her BS has been low like in the 40s. Patient is having a hard time reading small print and watching TV. Glaucoma evaluation The 67 year old patient presents for a glaucoma evaluation ou. Patient states when she first gets up in the am her eyes are blurry and crusty. Patient sometimes uses AT. Patient states she is unsure why Dr. Deborah Biggs sent her here. Patient is a Type II diabetic and BS was 214 and last A1C was 7.2 this am. Patient states they are going to be switching some DM medication. Patient states OD is a lazy eye. Patient just got new glasses. Functional Status Date Functional Assessmen t No Information Instructions Date Instruction Additional Infor nena Impression/Plan Impression/Plan Impression/Plan Impression/Plan Impression/Plan Impression/Plan Impression/Plan Assessments Type Assessment Date No Information Patient Care Teams Name Effective Dates (start - stop) Status Members No Information
--- OUTSIDE RECORDS SUMMARY | 2024-07-28 12:13 | XMS_ITS | Clinical Summary ---
Author Organization [facility] Address [address] [place] [address] Phone Care Team Providers Care Unhairing Inspector Name Role Phone Unavailable Primary Care Provider Unavailabl e Social History Tobacco Use Types Packs/Day Years Used Date Smoking Tobacco: Never Assessed Comments Unknown Sex and Gender Information Value Date Recorded Sex Assigned at Not on file Legal Sex Female 2:40 PM CDT Gender Identity Not on file Sexual Orientation Not on file Plan of Treatment Health Maintenance Due Date Last Done Comments DTAP/TDAP/TD VACCINES (1 - Tdap) 1975 BREAST CANCER SCREENING 1996 COLORECTAL SCREENING 2001 Colorectal Cancer Screening 2001 FIT-DNA Q 3 years 2001 FIT/FOBT Q 1 year 2001 Flex Sig/CT Colonography Q 5 years 2001 PNEUMOCOCCAL VACCINE 65+ YEARS (1 of 1 - PCV) 04/09/20 06 ZOSTER VACCINE (1 of 2) 2006 OSTEOPOROSIS SCREENING 2021 INFLUENZA VACCINE (#1) 2024 RSV VACCINE (60+ or ) (1 - 1-dose 75+ series) 2031
--- OUTSIDE RECORDS SUMMARY | 2024-07-28 12:13 | XMS_ITS | Clinical Summary ---
Author Organization [facility] Address [address] [place] [address] Phone Care Team Providers Care Electrophysiology Nurse Practitioner Name Role Phone Stefan Deal MD Unavailable Mariaa العراقي APRN Primary Care Provider [phone] Nicolas Overton MD Unavailable Viraj Salgado MD Unavailable [phone] Allergies No known active allergies Medications Ascorbic Acid (Vitamin C) 500 MG Capsule 02/08/20 22 Active omeprazole (PriLOSEC) 40 MG CAPSULE DELAYED RELEASE Take 1 Capsule by mouth daily. Active losartan (COZAAR) 100 MG TabletIndications: Essential hypertension Take 1 Tablet by mouth daily. 90 Tablet 3 04/20/20 22 Active pregabalin (LYRICA) 100 MG CapsuleIndications :DM (diabetes mellitus), type 2 with peripheral vascular complications (HCC),Neuropathy Take 1 Capsule by mouth 3 times daily. 270 Capsule 1 04/20/20 22 Active Blood Glucose Monitoring Suppl (True Metrix Meter) w/Device Kit 02/16/20 Active Alcohol Swabs (DropSafe Alcohol Prep) 70 % PadsIndications:Ty pe 2 diabetes mellitus with diabetic polyneuropathy, with long-term current use of insulin (HCC),Class 2 severe obesity due to excess calories with serious comorbidity and body mass index (BMI) of 37.0 to 37.9 in adult ([facility]) 03/24/20 22 Active venlafaxine (EFFEXOR-XR) 75 MG CAPSULE SR 24 HRIndications:Anxi ety Take 1 Capsule by mouth daily. 90 Capsule 1 06/15/20 22 Active venlafaxine (EFFEXOR-XR) 150 MG CAPSULE SR 24 HRIndications:Anxi ety Take 1 Capsule by mouth daily. 90 Capsule 1 06/15/20 22 Active solifenacin (VESICARE) 5 MG Tablet Take 1 Tablet by mouth daily. 90 Tablet 06/19/20 22 Active furosemide (LASIX) 40 MG Tablet 07/20/19 23 Active meloxicam (MOBIC) 15 MG Tablet 07/20/19 23 Active traZODone (DESYREL) 100 MG Tablet 07/20/19 23 Active lidocaine (XYLOCAINE) 5 % Ointment 07/20/19 23 Active atorvastatin (LIPITOR) 20 MG TabletIndications: Hyperlipidemia, unspecified hyperlipidemia type Take 1 Tablet by mouth daily. 90 Tablet 1 08/03/19 23 Active Dulaglutide (Trulicity) 0.75 MG/0.5ML Solution Pen-injector 0.75 mg by Subcutaneous route once a week. 2 mL 08/25/19 23 Active Additional Information Patient not taking.Reported on 09/19/2022 Mounjaro 7.5 MG/0.5ML Solution Pen-injector 08/25/19 23 Active Ozempic, 0.25 or 0.5 MG/DOSE, 2 MG/1.5ML Solution Pen-injector 08/19/19 23 Active Continuous Blood Gluc Health Care Coordinator (Dexcom G7 Health Care Coordinator) Device Check blood glucose before each meal and at bedtime 1 Each 10/28/19 23 Active glimepiride (AMARYL) 4 MG Tablet TAKE ONE TABLET BY MOUTH TWICE DAILY @9AM 5PM 180 Tablet 1 03/12/20 23 Active Additional Information Patient not taking.Reported on 04/06/2023 Continuous Blood Gluc Sensor (Dexcom G7 Sensor) Misc CHANGE EVERY SENSOR EVERY 10 DAYS 9 Each 04/04/20 23 Active Insulin Pen Needle (BD Pen Needle Elena 2nd Gen) 32G X 4 MM Misc 1 Pen Needle by Does not apply route in the morning and at bedtime. 200 Pen Needle 3 09/10/19 24 Active Lantus SoloStar 100 UNIT/ML Solution Pen-injector 25 Units by Subcutaneous route 2 times daily. 15 mL 09/14/19 24 Active Insulin Pen Needle (B-D ULTRAFINE III SHORT PEN) 31G X 8 MM Misc Twice a day 200 Pen Needle 10/08/19 Active pioglitazone (ACTOS) 45 MG Tablet TAKE ONE TABLET BY MOUTH DAILY AT 9AM 60 Tablet 11/07/19 Active Active Problems Problem Noted Date Diagnosed Date DONALDO (obstructive sleep apnea) 01/15/2023 Non morbid obesity 01/15/2023 Edema of left foot 02/02/2022 DM (diabetes mellitus), type 2 with peripheral vascular complications 06/11/2021 Essential (primary) hypertension 03/29/2019 Hammer toe of right foot 03/19/2019 Onychomycosis 03/12/2019 Inflammation of sacroiliac joint 02/04/2019 Sciatica 02/04/2019 Anxiety 09/10/2018 OAB (overactive bladder) 06/27/2018 Hyperlipidemia 12/24/2017 Primary insomnia 12/24/2017 Immunizations Immunization Administration Dates Next Due Influenza Vaccine, Quadrivalent, PF 04/20/2022,1 ,05/05/2019 Pneumococcal conjugate PCV20 , polysaccharide [id number] conjugate, adjuvant, PF 10/30/2022,11/11/2021 TDAP Vaccine 12/08/2020 Tuberculin Skin Test; Irinaiflisa ed Protein Derivative Solutiol 06/27/2010,06/21/2010,06/14/2010,06/19,06/10/2008,05/19/2005,01/26/2004 ,01/19/2004,11/30/1998 Zoster Vaccine Recombinant 10/30/2022,07/08/2022 Zoster Vaccine, live 05/13/2018 Family History Medical History Relation Name Comments Cancer Father Valentin Lung Cancer Father Valentin Breast Cancer Mother Su Congestive Heart Failure Mother Su Diabetes Sister Estrellita Relation Name Status Comments Father Valentin Mother Su Sister Estrellita Social History Tobacco Use Types Packs/Day Years Used Date Smoking Tobacco: Former Cigarettes 1 46.8 1 972 - 2018 Smokeless Tobacco: Never Tobacco Cessation:Counseling Given: Not Answered Alcohol Use Standard Drinks/Week Comments Never 0 [...] on file Sexual Orientation Not on file Last Filed Vital Signs Vital Sign Reading Time Taken Comments Blood Pressure 124/74 04/06/2023 11:39 AM CDT Pulse 112 04/06/2023 11:39 AM CDT Temperature 36.3 ??C (97.3 ??F) 04/06/2023 1 1:39 AM CDT Respiratory Rate 14 04/06/2023 11:3 9 AM CDT Oxygen Saturation 99% 04/06/2023 11: 39 AM CDT Inhaled Oxygen Concentration - - Weight 108.2 kg (238 lb 8 oz) 04/06/2023 11:39 AM CDT BMI incorrect due to technical error Height 165.1 cm (5' 5 ) 04/06/2023 11:3 9 AM CDT BMI incorrect due to technical error Body Mass Index 39.69 04/06/2023 11:39 AM CDT Plan of Treatment Health Maintenance Due Date Last Done Comments Hepatitis C Virus (HCV) Screening 1956 Colonoscopy 2001 Colorectal Cancer Screening 2001 Cologuard 2006 Immunochemical Fecal Occult Blood 2006 Respiratory Syncytial Virus (RSV) Immunization (Adult) (1 - Risk 60-74 years 1-dose series) 2016 Diabetes: Foot Exam 01/30/2023 01/30/2022 Diabetes: Nephropathy Screening 05/22/2023 05/22/2022, 03/23/2022, 10/19/2021 Diabetes: Hemoglobin A1c 06/30/202312/29/2 023, 09/19/2022, 05/30/2022, Additional history exists Diabetes: Eye Exam 10/31/2023 10/30/2022, 1 08/22/2021, 01/30/2022 DEXA Bone Density 11/19/2023 11/18/2021, 11/18/2021 Mammogram 11/19/2023 11/18/2021, 03/21/2018 Influenza Immunization (#1) 03/02/202404/02, 04/29/2020, 05/05/2019 SARS-COV-2 Immunization ( season) 2024 09/06/2020, 08/09/2020 Td Immunization Every 10 Years (Adults With 1 Tdap) 12/08/2030 12/08/2020 DTaP/Tdap/Td Immunization Discontinued 12/08/2020 Pneumococcal Immunization (50+ years) Completed 10/30/2022, 11/11/2021 Zoster Immunization Completed 10/30/2022, 07/08/2022, 05/13/2018 Hepatitis B Immunization Aged Out No longer eligible based on patient's age to complete this topic Meningococcal Immunization (ACWY) Aged Out No longer eligible based on patient's age to complete this topic Rotavirus Immunization Aged Out No lo nger eligible based on patient's age to complete this topic Procedures Procedure Name Priority Date/Time Associated Diagnosis Comments POCT GLYCOSYLATED HEMOGLOBIN Routine 12/29/2022 4:04 PM CDT Type 2 diabetes mellitus with diabetic polyneuropathy, with long-term current use of insulin (HCC) DILATED EYE EXAM 10/30/2022 1 2:00 AM CDT CMP (COMPREHENSIVE METABOLIC PANEL) STAT 05/22/2022 6:42 PM SECURITY AUDITOR BONE DENSITY GENERIC 11/18/2021 12:00 AM CDT MAMMOGRAM BILATERAL GENERIC 11/18/2021 12:00 AM CDT from Last 3 Months or Most Recently Relevant to Health Maintenance Results * (ABNORMAL) POCT GLYCOSYLATED HEMOGLOBIN (12/29/2022 4:04 PM CDT) HGB-A1C 6.3(A) 4 - 6 % Blood 12/29/2022 4:04 PM CDT Stefan Deal MD POINT OF CARE TESTING (MANUAL) F inal Result * DILATED EYE EXAM (10/30/2022 12:00 AM CDT) 10/30/2022 us Provider Scan PROCEDURE/MINOR SURGICAL ORDERAB LES Final Result SCAN * (ABNORMAL) Comprehensive Metabolic Panel (Cmp) [id number] (05/22/2022 6:42 PM SECURITY AUDITOR) SODIUM 134(L) 136 - 144 mmol/L 05/22/2022 7:12 PM [facility] POTASSIUM 3.8 3.5 - 5.1 mmol/L 05/22/2022 7:12 PM [facility] CHLORIDE 97(L) 100 - 110 mmol/L 05/22/2022 7:12 PM [facility] CO2, VENOUS 31 22 - 32 mmol/L 05/22/2022 7:12 PM [facility] ANION GAP 9.8 8.0 - 20.0 mmol/L 05/22/2022 7:12 PM [facility] GLUCOSE 198(H) 70 - 99 mg/dL 05/22/2022 7:12 PM [facility] BUN 17 8 - 23 mg/dL 05/22/2022 7:12 PM [facility] CREATININE, BLOOD 0.70 0.60 - 1.10 mg/dL 05/22/2022 7:12 PM [facility] BUN/CREATININE RATIO 24(H) 12 - 20 ratio 05/22/2022 7:12 PM [facility] TOTAL PROTEIN 7.0 6.0 - 8.3 g/dL 05/22/2022 7:12 PM [facility] ALBUMIN 3.8 3.5 - 5.2 g/dL 05/22/2022 7:12 PM [facility] Comment: The colormetric methods used for the determination of Albumin may lead to falsely elevated test results in patients suffering from renal failure or insufficiency due to interference with other proteins. A/G RATIO 1.2 1.0 - 2.0 05/22/2022 7:12 PM SECURITY AUDITOR [facility] CALCIUM 9.7 8.9 - 10.3 mg/dL 05/22/2022 7:12 PM SECURITY AUDITOR [facility] T BILI 0.3 <=1.2 mg/dL 05/22/2022 7:12 PM SECURITY AUDITOR [facility] SGOT (AST) 17 <=32 U/L 05/22/2022 7:12 PM SECURITY AUDITOR [facility] SGPT (ALT) 22 <=41 U/L 05/22/2022 7:12 PM SECURITY AUDITOR [facility] ALKALINE PHOSPHATASE 157(H) 35 - 105 U/L 05/22/2022 7:12 PM SECURITY AUDITOR [facility] GFR, ESTIMATED >60 >=60 05/22/2022 7:12 PM [facility] Comment: Creatinine Clearance is the preferred criteria for selecting drug dose adjustments in renally impaired patients. ??The GFR is provided as additional pertinent clinical information. GFR is reported in mL/min/1.73 sq m. Calculation based on the Chronic Kidney Disease Epidemiology Collaboration (CKD- EPI) equation refit without adjustment for race. GFR, EST. >60 >=60 022 7:12 PM SECURITY AUDITOR [facility] GFR, EST. NONAFRICAN >60 >=60 05/22/2022 7:12 PM SECURITY AUDITOR [facility] Blood Venipuncture / Unknown 05/22/2022 6:42 PM SECURITY AUDITOR 05/22/2022 6:45 PM SECURITY AUDITOR us Tito Feliz MD CHEMISTRY ORDERABLES Final Resu lt [facility] [address] [place] [address] * BONE DENSITY GENERIC SCAN (11/18/2021 12:00 AM CDT) 11/18/2021 us Not On File Provider IMG DEXA ORDERABLES Final R esult SCAN * MAMMOGRAM BILATERAL MISCELLANEOUS (11/18/2021 12:00 AM CDT) 11/18/2021 us Not On File Provider IMG MAMMO ORDERABLES Final Result SCAN from Last 3 Months or Most Recently Relevant to Health Maintenance Insurance MEDICARE C HUMANA Care Teams Electrophysiology Nurse Practitioner Relationship Specialty Start Date End Date Mariaa العراقي APRN #[address] [phone] PCP - General Advanced Practice Nurse 04/06/23 Stefan Deal MD #[address] [address] Consulting Physician Endocrinology 06/20/22 Nicolas Overton MD [address] [place] [address] Consulting Physician Pulmonary Disease 01/15/23 Viraj Salgado MD [address] [place] [address] Consulting Physician Neurology 01/05/23
[2024-07-29 05:14] LABS: GGT 15 U/L (3-65)
== END 2024-07-28 11:07 | disposition home or self-care (01) ==
PROVIDERS: PCP Nurse Practitioner Adult Health; Visit Provider Internal Medicine
DX: R74.8 Abnormal levels of other serum enzymes (principal)
CPT/HCPCS: 36415; 82977

== ENCOUNTER 2024-12-24 11:13 | Outpatient (CLI) | payer MEDICARE, SELFPAY ==
[2024-12-24 11:40] LABS: Hematocrit 40.4 % (37.0-47.0); Hemoglobin 12.5 g/dL (12.0-15.0); Mean Corpuscular HGB Conc 30.9 g/dl (32-36); Mean Corpuscular Hemoglobin 25.2 pg (26-34); Mean Corpuscular Volume 81.5 fl (80-100); Mean Platelet Volume 12.1 fl (7.4-10.4); Platelet Count Result 205 k/mm3 (150-375); Red Blood Count 4.96 M/mm3 (4.2-5.4); Red Cell Distribution Width 15.2 % (11.5-14.5); White Blood Count 8.4 K/mm3 (4.5-10.0)
[2024-12-24 12:30] LABS: Vitamin D 25 Hydroxy 20.8 ng/mL
[2024-12-24 12:34] LABS: Alanine Aminotransferase 30 U/L (6-35); Albumin Level 4.2 g/dL (3.5-5.1); Alkaline Phosphatase 106 U/L (38-126); Anion Gap 7 mmol/L (4-12); Aspartate Amino Transferase 31 U/L (14-36); Bilirubin,Total 0.5 mg/dL (0.2-1.3); Blood Urea Nitrogen 24 mg/dL (7-17); Calcium 9.2 mg/dL (8.4-10.2); Carbon Dioxide 31 mmol/L (22-30); Chloride 99 mmol/L (98-107); Cholesterol 148 mg/dL (0-200); Estimated Glomerular Filt Rate 55; Glucose 117 mg/dL (65-110); HDL Direct 41 mg/dL; Potassium 4.1 mmol/L (3.4-5.0); Sodium 137 mmol/L (137-145); Total Protein 7.7 g/dL (6.3-8.2); Triglycerides 166 mg/dL (<150)
[2024-12-24 12:38] LABS: Creatinine Urine 75.9 mg/dL
[2024-12-24 12:41] LABS: MALB Creatinine Ratio 138.9 mg/g (0-30); Microalbumin Urine Random 105.4 mg/L (0-16.7)
[2024-12-24 12:45] LABS: LDL Cholesterol Direct 59 mg/dL
== END 2024-12-24 11:14 | disposition home or self-care (01) ==
PROVIDERS: PCP Nurse Practitioner Adult Health; Visit Provider Internal Medicine
DX: E78.5 Hyperlipidemia, unspecified (principal); E11.9 Type 2 diabetes mellitus without complications; I10 Essential (primary) hypertension; Z71.3 Dietary counseling and surveillance; Z79.899 Other long term (current) drug therapy
CPT/HCPCS: 36415; 80053; 80061; 82043; 82306; 82607; 84439; 84443; 85027

== ENCOUNTER 2025-02-13 15:03 | Outpatient (CLI) | payer MEDICARE, SELFPAY ==
--- NOTE | ~2025-02-13 | MM_ITS ---
EXAMINATION: MM screening jenna BI w long HISTORY: Screening TECHNIQUE: Craniocaudal and mediolateral oblique 3-D tomosynthesis images were obtained and synthetic 2-D images were generated. CAD analysis was submitted and interpreted. COMPARISON: 06/12/2023 BREAST PARENCHYMAL COMPOSITION: There are scattered areas of fibroglandular density. FINDINGS: There is no evidence of suspicious mass, calcification, or architectural distortion to sugg est malignancy in either breast. There has been no suspicious interval change. IMPRESSION: 1. No mammographic evidence of malignancy. 2. Recommend routine screening mammography in one year. BI-RADS Category 1: Negative Reviewed, dictated and finalized at location A.
== END 2025-02-13 15:04 | disposition home or self-care (01) ==
LOC: MICIMG 15:04
PROVIDERS: PCP Nurse Practitioner Adult Health; Visit Provider Nurse Practitioner Adult Health
DX: Z12.31 Encounter for screening mammogram for malignant neoplasm of breast (principal)
CPT/HCPCS: 77063; 77067

== ENCOUNTER 2025-02-25 15:30 | Outpatient (CLI) | payer MEDICARE, SELFPAY ==
--- OUTSIDE RECORDS SUMMARY | 2025-02-12 07:43 | XMS_ITS | Continuity of Care Document ---
Author Organization [facility] Address [address] [facility] utijenni Uriarte [address] [place] [address] Phone Care Team Providers Care Etl Analyst Name Role Phone Inocencia Catsro OD Unavailable Unavailable Allergies, Adverse Reactions, Alerts [...] day at bedtime 50 MG - Active meloxicam 7.5 mg tablet take 1 tablet by oral route 2 times every day 7.5 MG - Active omeprazole 40 mg capsule,delayed release take 1 capsule by oral route every day before a meal 40 MG - Active venlafaxine 75 mg tablet [...] Diagnoses Date Provider Providers Copied on Encounter [facility], [address], [place], [place], [address], tel:[phone] SEC [place] ADRIANA Professional No Information 5 Matthew OD Inocencia. [address], [address], [place], [place], [address], [place]. tel:[phone] Office/outpa tient Visit, Est [facility], [address], [place], [place], [address], [place] tel:[phone] SEC [place] ADRIANA Professional Corneal evaluation (chief complaint) Dry eye syndrome, leftPresence of intraocular lensCornea disorder 5 Deena Mccullough. [address], [address], [place], [place], [address], [place]. tel:[phone] Naif Bhatti.Refe rring Provider: Deborah Biggs OD, [facility] [address] [facility], [place], [address]. tel:[phone] [facility], [address], [place], [place], [address], [place] tel:[phone] [place] Professional Post-Op (chief complaint) Post op visitAmblyop ia, right eye Nov- 4 Anahi OD Doris. [address], [address], [place], [place], [address], [place]. tel:[phone] Specialist: Naif Bhatti, [address] [facility] [address], [place], [address]. tel:[phone] Provider: Deborah Biggs OD, [facility] [address] [facility], [place], [address]. tel:[phone] [facility], [address], [place], [place], [address], [place] tel:[phone] [place] Professional Post-Op (chief complaint) Post op visit Apr-3 4 Anahi OD Doris. [address], [address], [place], [place], [address], [place]. tel:[phone] Naif Bhatti.Refe rring Provider: Deborah Biggs OD, [facility] [address] [facility], [place], [address]. tel:[phone] [facility], [address], [place], [place], [address], [place] tel:[phone] [facility] [place] No Information Apr- 4 Deena Mccullough. [address], [address], [place], [place], [address], [place]. tel:[phone] Referring Provider: Deborah Biggs OD, [facility] [address] [facility], [place], [address]. tel:[phone] [facility], [address], [place], [place], [address], [place] tel:[phone] [place] No Information 4 Deena Jamel. [facility] [employer] [facility], [address], [place], [place], [address], [place]. tel:[phone] Referring Provider: Deborah Biggs OD, [facility] [address] [place], [address]. tel:[phone] Office/outpa tient Visit, Est [facility], [address] [place] [address] [address], [place], [place], [address], [place] tel:[phone] SEC [place] Professional Cataract evaluation (chief complaint) Amblyopia, right eyeCombined forms of age-related cataract, right eyePresence of intraocular lensType 2 diab with moderate nonp rtnop with macular edema, biStable central retinal vein occlusion of left eye 4 Deena Jamel. [facility] [address], [address], [place], [place], [address], [place]. tel:[phone] Naif Bhatti.Refe rring Provider: Deborah Biggs OD, [facility] [address] [facility], [place], [address]. tel:[phone] [facility], [facility] [employer] [employer] [facility] [address], [place], [place], [address], [place] tel:[phone] [place] Professional diabetic eye exam (chief complaint) Stable central retinal vein occlusion of left eyeType 2 diab with moderate nonp rtnop with macular edema, biAmblyopia, right eyeCombined forms of age-related cataract, right eyePresence of intraocular lensFull thickness macular hole of left eyeDry eye syndrome of bilateral lacrimal glands 4 Anahi OD Doris. [facility] [address] [employer], [address], [place], [place], [address], [place]. tel:[phone] Specialist: Ros Llamas [address] [place] [address], [address]. tel:[phone] ist: Ros Llamas [address], [place], [address]. tel:[phone] ng Provider: Deborah Biggs OD, [address], [address]. tel:[phone] [facility], [address], [place], [place], [address], tel:[phone] [place] Professional Follow up visit (chief complaint) Central retinal vein occlusion of left eye, unspecified complication statusFull thickness macular hole of left eye 3 Baldemar Sanchez. [address], [address], [place], [place], [address], [place]. tel:[phone] Referring Provider: Deborah Biggs OD, [address], [address]. tel:[phone] [facility], [address], [place], [place], [address], [place] tel:[phone] [place] Professional Glaucoma evaluation (chief complaint) Presence of intraocular lensCombined forms of age-related cataract, right eyeMeibomian gland dysfunction (MGD) of left eyeDry eye syndrome, leftOther secondary cataract, left eyeAmblyopia , right eyeHemispher ic central retinal vein occlusion (CRVO) of left eyeType 2 diabetes mellitus without complication s 2 Baldemar Sanchez. [address], [address], [place], [place], [address], [place]. tel:[phone] Referring Provider: Deborah Biggs OD, [address], [address]. tel:[phone] Family History Family Member Type Diagnosis Age At Onset Problem Family history of Diabetes stevenson newman Payers Payer name Insurance type Covered republican ID Authorjudith kimbroughsaravanan(s) [facility] Mdcr Adv CI [id number] Social History Type Description Quantity Date Captured [...] Referral Referred To: Aneesh Araiza [address] [place], [address] Ordered: Referrals: Aneesh Araiza. Evaluate and treat [...]
--- OUTSIDE RECORDS SUMMARY | 2025-02-25 15:33 | XMS_ITS | Clinical Summary ---
Author Organization [facility] Address [address] [place] [address] Phone Care Team Providers Care Plastics Spreading Machine Operator Name Role Phone Unavailable Primary Care Provider [...] Colonography Q 5 years 2001 PNEUMOCOCCAL VACCINE 50+ YEARS (1 of 1 - PCV) 04/09/20 06 ZOSTER VACCINE (1 of 2) 2006 OSTEOPOROSIS SCREENING 2021 INFLUENZA VACCINE (#1) 2025 RSV VACCINE (60+ or ) (1 - 1-dose 75+ series) 2031
--- OUTSIDE RECORDS SUMMARY | 2025-02-25 15:33 | XMS_ITS | Patient Health Record ---
Author Organization [facility] Address [address] [facility] [address] [place] [address] Care Team Providers Care Event Planning Manager Name Role Phone Stephanie Padilla Primary Care Provider Michael reyna Tricia Sanchez Unavailable [phone] Allergies No Known Allergies Reason For Referral No Information Medications Medication SIG (Take, Route, Fr equency, Duration) Notes Start Date End Date Status Losartan Potassium A ctive Lantus Active Atorvastatin Calcium Active traZODone HCl Active Solifenacin Succinate Active Pioglitazone HCl 45 MG Oral; Duration: 30 Days Active Venlafaxine HCl Acti ve Furosemide 40 MG Oral; Duration: 30 Days Active Omeprazole Active Lyrica Active Glimepiride Active Meloxicam Active Vitamin C Active Social History Tobacco Use: Social History Observation Description Date Details (start date - stop date) Former Smoker NA - NA Tobacco Use/Smoking Question Answer Notes Are you a former smoker Problems Problem Type SNOMED Code ICD Code Onset Dates Problem Status W/U Status Risk Notes Problem Long-term current use of insulin (516339815) longterm (current) use of insulin (Z79.4) Active confirmed Problem Polyneuropathy due to type 2 diabetes mellitus (038784670) Type 2 diabetes mellitus with diabetic polyneuropathy (E11.42) Active confirmed Problem Abnormal gait (28531405) Unstable balance (R26.89) Active confirmed Plan Of Treatment No Information Insurance Providers Payer Name Payer Address Payer Phone Subscriber Number Group Number Insured Name Patient Relationship to Insured Coverage Start Date Coverage End Date [employer] Medicare Complete [address] [address] [place] [id number] Tiara Rosas Self - patient is the insured Medical (General) History Medical History History ICD Code Arthritis, Diabetes, high cholesterol, h ypertension Surgical History Surgery Date(Month/Year) Left partial second toe ampu tation, Eye surgery for hole in retina(LT eye, 12/2022)
--- OUTSIDE RECORDS SUMMARY | 2025-02-25 15:33 | XMS_ITS | Encounter Summary ---
Author Organization [facility] Address [address] [place] [address] Phone Care Team Providers Care Smoke Control Supervisor Name Role Phone Stefan Deal MD Unavailable Stephanie Padilla MD Primary Care Provider [phone] Mariaa العراقي APRN Primary Care Provider [phone] Nicolas Overton MD Unavailable Viraj Salgado MD Unavailable [phone] Reason for Visit * Reason Comments Medication Refill Encounter Details Date Type Department Care Team (Late st Contact Info) Description 01/14/2023 Refill [facility] - [facility] [address] [place] [address] Jeyson Velazquez MD [address] [place] [address] Medication Refill Social History Tobacco Use Types [...] on filedocumented in this encounter Care Teams Smoke Control Supervisor Relationship Specialty Start Date End Date Stephanie Padilla MD [address] [place] [phone] PCP - General Family Medicine 07/10/22 04/05/23 Mariaa العراقي APRN [address] [place] [address] [id number] PCP - General Advanced Practice Nurse 04/06/23 Stefan Deal MD [address] [facility] [address] [phone] Consulting Physician Endocrinology 06/20/22 09/17/24 Nicolas Overton MD [address] [place] [phone] Consulting Physician Pulmonary Disease 01/15/23 Viraj Salgado MD [address] [place] [address] Consulting Physician Neurology 01/05/23 documented as of this encounter
--- OUTSIDE RECORDS SUMMARY | 2025-02-25 15:33 | XMS_ITS | Clinical Summary ---
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 and body mass index (BMI) of 37.0 to 37.9 in adult (HCC) 03/24/20 22 Active venlafaxine (EFFEXOR-XR) 75 MG [...] Pen-injector 08/19/19 23 Active Continuous Blood Gluc Railroad Track Inspector (Dexcom G7 Railroad Track Inspector) Device Check blood glucose before each meal [...] Twice a day 200 Pen Needle 10/08/19 24 Active pioglitazone (ACTOS) 45 MG Tablet TAKE ONE TABLET BY MOUTH DAILY AT 9AM 60 Tablet 11/07/19 24 Active Active Problems Problem Noted Date Diagnosed [...] 04/20/2022,1 ,05/05/2019 Pneumococcal conjugate PCV20 , polysaccharide [id number] conjugate, adjuvant, PF 10/30/2022,11/11/2021 TDAP Vaccine 12/08/2020 Tuberculin Skin Test; Francheska ed Protein Derivative Solutiol 06/27/2010,06/21/2010,06/14/2010,06/19,06/10/2008,05/19/2005,01/26/2004 ,01/19/2004,11/30/1998 Zoster [...] 112 04/06/2023 11:39 AM CDT Temperature 36.3 C (97.3 F) 04/06/2023 11:39 AM CDT Respiratory Rate 14 04/06/2023 11:3 9 AM CDT Oxygen Saturation 99% 04/06/2023 11: 39 AM CDT Inhaled Oxygen Concentration - - Weight 108.2 kg (238 lb 8 oz) 04/06/2023 11:39 AM CDT BMI incorrect due to technical error Height 165.1 cm (5' 5) 04/06/2023 11:3 9 AM CDT BMI incorrect due to technical error Body Mass Index 39.69 04/06/2023 11:39 AM CDT Plan of Treatment Health Maintenance Due Date Last Done Comments Hepatitis C Virus (HCV) Screening 1956 Cologuard 2001 Colonoscopy 2001 Colorectal Cancer Screening 2001 Immunochemical Fecal Occult Blood 2001 Respiratory Syncytial Virus (RSV) Immunization (Adult) (1 - Risk 60-74 years 1-dose series) 2016 Mammogram 11/18/2022 11/18/2021, 03/21/2018 Diabetes: Foot Exam 01/30/2023 01/30/2022 Diabetes: Nephropathy Screening 05/22/2023 05/22/2022, 03/23/2022, 10/19/2021 Diabetes: Hemoglobin A1c 06/30/202312/29/ 023, 09/19/2022, 05/30/2022, Additional history exists Diabetes: Eye Exam 10/31/2023 10/30/2022, 1 08/22/2021, 01/30/2022 DEXA Bone Density 11/19/2023 11/18/2021, 11/18/2021 SARS-COV-2 Immunization ( season) 2024 09/06/2020, 08/09/2020 Influenza Immunization (#1) 03/02/202504/02, 04/29/2020, 05/05/2019 Td Immunization Every 10 Years (Adults With 1 Tdap) 12/08/2030 12/08/2020 DTaP/Tdap/Td Immunization Discontinued 12/08/2020 Pneumococcal Immunization (50+ years) Completed 10/30/2022, 11/11/2021 Zoster Immunization Completed 10/30/2022, 07/08/2022, 05/13/2018 Hepatitis B Immunization Aged Out No longer eligible based on patient's age to complete this topic Human Papillomavirus (HPV) Immunization Aged Out No longer eligible based [...] with long-term current use of insulin (HCC) HM DILATED EYE EXAM 10/30/2022 1 2:00 AM CDT CMP (COMPREHENSIVE METABOLIC PANEL) STAT 05/22/2022 6:42 PM SOCIAL WORK THERAPIST BONE DENSITY GENERIC 11/18/2021 12:00 AM CDT [...] SCAN * (ABNORMAL) Comprehensive Metabolic Panel (Cmp) [id number] (05/22/2022 6:42 PM SOCIAL WORK THERAPIST) SODIUM 134(L) 136 - 144 mmol/L 05/22/2022 7:12 PM [facility] POTASSIUM 3.8 3.5 - 5.1 mmol/L 05/22/2022 7:12 PM [facility] CHLORIDE 97(L) 100 - 110 mmol/L 05/22/2022 7:12 PM [facility] CO2, VENOUS 31 22 - 32 mmol/L 05/22/2022 7:12 PM [facility] ANION GAP 9.8 8.0 - 20.0 mmol/L 05/22/2022 7:12 PM [facility] GLUCOSE 198(H) 70 - 99 mg/dL 05/22/2022 7:12 PM [facility] BUN 17 8 - 23 mg/dL 05/22/2022 7:12 PM [facility] CREATININE, BLOOD 0.70 0.60 - 1.10 mg/dL 05/22/2022 7:12 PM [facility] BUN/CREATININE RATIO 24(H) 12 - 20 ratio 05/22/2022 7:12 PM [facility] TOTAL PROTEIN 7.0 6.0 - 8.3 g/dL 05/22/2022 7:12 PM [facility] ALBUMIN 3.8 3.5 - 5.2 g/dL 05/22/2022 7:12 PM [facility] Comment: The colormetric methods used for the determination of Albumin may lead to falsely elevated test results in patients suffering from renal failure or insufficiency due to interference with other proteins. A/G RATIO 1.2 1.0 - 2.0 05/22/2022 7:12 PM SOCIAL WORK THERAPIST [facility] CALCIUM 9.7 8.9 - 10.3 mg/dL 05/22/2022 7:12 PM SOCIAL WORK THERAPIST [facility] T BILI 0.3 <=1.2 mg/dL 05/22/2022 7:12 PM SOCIAL WORK THERAPIST [facility] SGOT (AST) 17 <=32 U/L 05/22/2022 7:12 PM SOCIAL WORK THERAPIST [facility] SGPT (ALT) 22 <=41 U/L 05/22/2022 7:12 PM SOCIAL WORK THERAPIST [facility] ALKALINE PHOSPHATASE 157(H) 35 - 105 U/L 05/22/2022 7:12 PM SOCIAL WORK THERAPIST [facility] GFR, ESTIMATED >60 >=60 05/22/2022 7:12 PM [facility] Comment: Creatinine Clearance is the preferred criteria for selecting drug dose adjustments in renally impaired patients. The GFR is provided as additional pertinent clinical information. GFR is reported in mL/min/1.73 sq m. Calculation based on the Chronic Kidney Disease Epidemiology Collaboration (CKD- EPI) equation refit without adjustment for race. GFR, EST. >60 >=60 022 7:12 PM SOCIAL WORK THERAPIST [facility] GFR, EST. NONAFRICAN >60 >=60 05/22/2022 7:12 PM SOCIAL WORK THERAPIST [facility] Blood Venipuncture / Unknown 05/22/2022 6:42 PM SOCIAL WORK THERAPIST 05/22/2022 6:45 PM SOCIAL WORK THERAPIST us Tito Feliz MD CHEMISTRY ORDERABLES Final Resu lt [facility] [address] [place] [address] * BONE DENSITY GENERIC SCAN (11/18/2021 12:00 AM CDT) 11/18/2021 us Not On File Provider IMG DEXA ORDERABLES Final R esult SCAN * MAMMOGRAM BILATERAL MISCELLANEOUS (11/18/2021 12:00 AM CDT) 11/18/2021 us Not On File Provider IMG MAMMO ORDERABLES Final Result SCAN from Last 3 Months or Most Recently Relevant to Health Maintenance Insurance MEDICARE C HUMA[employer] Care Teams Office Employee Relationship Specialty Start Date End Date Mariaa العراقي APRN PCP - General Advanced Practice Nurse 04/06/23 Nicolas Overton MD [address] [place] [phone] Consulting Physician Pulmonary Disease 01/15/23 Viraj Salgado MD [address] [place] [address] Consulting Physician Neurology 01/05/23
--- OUTSIDE RECORDS SUMMARY | 2025-02-25 15:33 | XMS_ITS | Encounter Summary ---
Author Organization [facility] Address [address] [place] [address] Phone Care Team Providers Care Servicer Name Role Phone Stefan Deal MD Unavailable Mariaa العراقي APRN Primary Care Provider Nicolas Overton MD Unavailable Viraj Salgado MD Unavailable Reason for Visit * Reason Comments Medication Refill Encounter Details Date Type Department Care Team (Late st Contact Info) Description 01/07/2024 Refill [facility] - Family Medicine [facility] [address] [place] [address] Stefan Deal MD [address] [address] Medication Refill Social History Tobacco [...] on filedocumented in this encounter Care Teams Servicer Relationship Specialty Start Date End Date Mariaa العراقي APRN [address] [phone] PCP - General Advanced Practice Nurse 04/06/23 Stefan Deal MD [address] [phone] Consulting Physician Endocrinology 06/20/22 09/17/24 Nicolas Overton MD [address] [place] [phone] Consulting Physician Pulmonary Disease 01/15/23 Viraj Salgado MD [address] [place] [phone] Consulting Physician Neurology 01/05/23 documented as of this encounter
--- OUTSIDE RECORDS SUMMARY | 2025-02-25 15:33 | XMS_ITS | Encounter Summary ---
Author Organization [facility] Address [address] [place] [address] Phone Care Team Providers Care Oxygen Plant Operator Name Role Phone Stefan Deal MD Unavailable Mariaa العراقي APRN Primary Care Provider Nicolas Overton MD Unavailable Viraj Salgado MD Unavailable Reason for Visit * Reason Comments Medication Refill Encounter Details Date Type Department Care Team (Late st Contact Info) Description 05/04/2023 Refill [facility] [address] [place] [address] Stefan Deal MD [address] [phone] Medication Refill Social History Tobacco [...] Leanna Carrasco, RN - 05/07/2023 8:23 AM WOODWORKER Requested Prescriptions Pending Prescriptions Disp Refills ??? Insulin Pen Needle (Easy Touch Pen [place]) 31G X 8 MM Misc [Pharmacy Med Name: Easy Touch 31 gauge x 5/16 needle] 100 Pen Needle 11 Sig: USE DAILY DIRECTED (BULK) Next appt: Message sent to schedule follow up. WORKER documented in this encounter Plan of Treatment Not on file documented as of this encounter Visit Diagnoses Not on filedocumented in this encounter Care Teams Oxygen Plant Operator Relationship Specialty Start Date End Date Mariaa العراقي APRN [address] [address] PCP - General Advanced Practice Nurse 04/06/23 Stefan Deal MD [address] [address] Consulting Physician Endocrinology 06/20/22 09/17/24 Nicolas Overton MD [address] [place] [address] Consulting Physician Pulmonary Disease 01/15/23 Viraj Salgado MD [address] [place] [address] Consulting Physician Neurology 01/05/23 documented as of this encounter
[2025-02-25 20:00] LABS: Add Urine Microscopic? YES; Appearance Urine Cloudy (Clear); Glucose Urine UA 3+ mg/dL (Negative); Leukocyte Esterase Ur 2+ LEU/UL (Negative); Nitrate Urine Negative (Negative); Specific Grav Ur 1.023 (1.001-1.035)
== END 2025-02-25 15:31 | disposition home or self-care (01) ==
PROVIDERS: PCP Nurse Practitioner Adult Health; Visit Provider Nurse Practitioner Adult Health
DX: R42 Dizziness and giddiness (principal)
CPT/HCPCS: 81001